=== PATIENT | female | born 1995 | race African-American/Black ===

== ENCOUNTER 2020-11-11 04:20 | Day surgery (SDC) | payer OTHER ==
[2020-11-05 16:07] VITALS: BMI 32.2
[2020-11-11] MEDS ORDERED: PROPOFOL 20 ML ONE (12:28)
[2020-11-11] MEDS ORDERED: MIDAZOLAM HCL 2 MG/2 ML SINGLE DOSE VIAL ONE (12:28)
[2020-11-11] MEDS ORDERED: ACETAMINOPHEN 325 MG TABLET (FP) PO PRN (12:56)
[2020-11-11] MEDS ORDERED: IBUPROFEN 400 MG TABLET (FP) PO PRN (12:56)
[2020-11-11] MEDS ORDERED: PROMETHAZINE HCL 25 MG/1 ML VIAL IVPUSH PRN (13:04)
[2020-11-11] MEDS ORDERED: ONDANSETRON 4 MG/2 ML VIAL IVPUSH PRN (13:04)
[2020-11-11] MEDS ORDERED: oxyCODONE HCL 5 MG TABLET PO PRN (13:04)
[2020-11-11] MEDS ORDERED: LACTATED RINGERS SOLUTION 1,000 ML IV SCH (13:15)
[2020-11-11 14:42] VITALS: TEMP 96.9
[2020-11-11] MEDS ORDERED: ONDANSETRON 4 MG/2 ML VIAL IVPUSH ONE (15:05)
[2020-11-11 16:10] VITALS: BP 120/73; PULSE 66
== END 2020-11-11 16:05 | disposition home or self-care (01) ==
LOC: JASU-SURG 04:20
PROVIDERS: ATTEND Specialist
PROC: 10D17ZZ Extraction of Products of Conception, Retained, Via Natural or Artificial Opening (ICD-10-PCS; principal; 2020-11-11 12:00)
DX: O02.1 Missed abortion (principal); D25.9 Leiomyoma of uterus, unspecified
CPT/HCPCS: 88305-TC; 94760